=== PATIENT | male | born 1990 | race American Indian/Alaskan Native ===

== ENCOUNTER 2021-04-01 05:00 | Emergency (ER) | payer SELFPAY ==
[2021-04-01] MEDS ORDERED: SODIUM CHLORIDE 0.9% 1000 ML 1,000 ML IV ONE ×2 (05:38→07:27)
[2021-04-01 05:54] LABS: Basophils % (Auto) 0.3 % (0.0-1.8); Eosinophils # (Auto) 0.1 K/mm3 (0.0-0.4); Eosinophils % (Auto) 1.1 % (0.0-4.3); Hematocrit 42.1 % (35.5-45.6); Hemoglobin 14.2 gm/dl (11.8-15.2); Lymphocytes # (Auto) 1.8 K/mm3 (1.2-5.4); Lymphocytes % (Auto) 13.5 % (13.4-35.0); Mean Corpuscular HGB Conc 34 % (32-34); Mean Corpuscular Volume 89 fl (84-94); Monocytes # (Auto) 1.3 K/mm3 (0.0-0.8); Monocytes % (Auto) 9.8 % (0.0-7.3); Platelet Count 232 K/mm3 (140-440); Red Blood Count 4.72 M/mm3 (3.65-5.03); Red Cell Distribution Width 13.5 % (13.2-15.2)
[2021-04-01 06:23] LABS: BUN/Creatinine Ratio 10; Blood Urea Nitrogen 12 mg/dL (9-20); Calcium 9.1 mg/dL (8.4-10.2); Hemolysis Index 10
--- NOTE | 2021-04-01 06:39 | Emergency Department Report ---
HPI - General Chief Complaint: Syncope Time Seen by Provider: 04/01/21 06:06 - HPI HPI: This is a 27-year-old -[place] male who presents to the emergency department via EMS from work after the patient had a syncopal episode followed by a headache with nausea and vomiting. At the time of my examination the patient is awake and alert and oriented. 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 He sat down on a crate and was seen passing out for a few minutes. When the patient woke up he had a generalized headache with multiple episodes of nausea vomiting. Currently the patient still has a headache, 7 out of 10 in intensity, but the nausea/vomiting has resolved. He did not take anything or receive anything for his symptoms prior to presentation. The patient has a history of a previous brain aneurysm that has since "clotted off" and he had one episode of seizures. He is not currently on seizure medication since 2014. He denies any vision change, slurred speech, numbness or paresthesias, focal or lateralizing weakness or deficits. No recent travel or sick contacts at home. He does not have a primary care physician or neurologist. ED Past Medical Hx - Past Medical History Previous Medical History?: Yes Hx Seizures: Yes Additional medical history: Brain Bleed - Surgical History Past Surgical History?: No - Social History Smoking Status: Never Smoker Substance Use Type: Other ED Review of Systems ROS: Stated complaint: SYNCOPE;VOMITING Other details as noted in HPI Comment: All other systems reviewed and negative Constitutional: denies: chills, fever Eyes: denies: eye pain, vision change ENT: denies: ear pain, throat pain Respiratory: denies: cough, shortness of breath Cardiovascular: syncope. denies: chest pain, palpitations Gastrointestinal: nausea, vomiting. denies: abdominal pain Genitourinary: denies: dysuria, discharge Musculoskeletal: denies: back pain, arthralgia Skin: denies: rash, lesions Neurological: headache. denies: numbness, paresthesias Physical Exam - Physical Exam Vital Signs: Vital Signs 04/01/21 05:05 Temperature 97.5 F L Pulse Rate 66 Respiratory 18 Rate Blood Pressure 96/62 [Right] O2 Sat by Pulse 96 Oximetry Physical Exam: GENERAL: The patient is well-developed well-nourished. HENT: Normocephalic. Atraumatic. Patient has moist mucous membranes. EYES: Extraocular motions are intact. Pupils equal reactive to light bilaterally. No nystagmus. NECK: Supple. Trachea is midline. CHEST/LUNGS: Clear to auscultation. There is no respiratory distress noted. HEART/CARDIOVASCULAR: Regular. There is no tachycardia. There is no murmur. ABDOMEN: Abdomen is soft, nontender. Patient has normal bowel sounds. SKIN: Skin is warm and dry. NEURO: The patient is awake, alert, and oriented. The patient is cooperative. The patient has no focal neurologic deficits. Normal speech. Cranial nerves II through XII grossly intact. No pronator drift or dysmetria. No facial asymmetry. MUSCULOSKELETAL: There is no tenderness or deformity. There is no limitation range of motion. ED Course Vital Signs 04/01/21 05:05 Temperature 97.5 F L Pulse Rate 66 Respiratory 18 Rate Blood Pressure 96/62 [Right] O2 Sat by Pulse 96 Oximetry ED Medical Decision Making - Lab Data Result diagrams: 04/01/21 05:41 04/01/21 05:41 Lab Results 04/01/21 04/01/21 04/01/21 Range/Units 05:41 05:41 08:39 WBC 13.3 H (4.5-11.0) K/mm3 RBC 4.72 (3.65-5.03) M/mm3 Hgb 14.2 (11.8-15.2) gm/dl Hct 42.1 (35.5-45.6) % MCV 89 (84-94) fl MCH 30 (28-32) pg MCHC 34 (32-34) % RDW 13.5 (13.2-15.2) % Plt Count 232 (140-440) K/mm3 Lymph % (Auto) 13.5 (13.4-35.0) % Davis % (Auto) 9.8 H (0.0-7.3) % Eos % (Auto) 1.1 (0.0-4.3) % Baso % (Auto) 0.3 (0.0-1.8) % Lymph # (Auto) 1.8 (1.2-5.4) K/mm3 Davis # (Auto) 1.3 H (0.0-0.8) K/mm3 Eos # (Auto) 0.1 (0.0-0.4) K/mm3 Baso # (Auto) 0.0 (0.0-0.1) K/mm3 Seg Neutrophils % 75.3 H (40.0-70.0) % Seg Neutrophils # 10.0 H (1.8-7.7) K/mm3 Sodium 140 (137-145) mmol/L Potassium 4.4 (3.6-5.0) mmol/L Chloride 102.4 (98-107) mmol/L Carbon Dioxide 24 (22-30) mmol/L Anion Gap 18 mmol/L BUN 12 (9-20) mg/dL Creatinine 1.2 (0.8-1.3) mg/dL Estimated GFR > 60 ml/min BUN/Creatinine Ratio 10 % Glucose 53 L (75-100) mg/dL POC Glucose 91 (70-105) mg/dL Calcium 9.1 (8.4-10.2) mg/dL - EKG Data -: EKG Interpreted by Me EKG shows normal: sinus rhythm, axis, intervals, QRS complexes, ST-T waves Rate: normal - EKG Data When compared to previous EKG there are: previous EKG unavailable Interpretation: normal EKG - Medical Decision Making This patient presented to the emergency department after he had a syncopal episode while at work. Since being in the emergency department and since my initial examination the patient has been awake, alert, oriented. He does not appear in any respiratory or acute distress. On examination there is no focal, motor or sensory deficits and his cranial nerves are intact. The patient's labs have been mostly unremarkable including CBC and metabolic panel, except for some mild hyperglycemia with a blood sugar of about 60. He was given some juice and something to eat and upon recheck his Accu-Chek was up to about 90. EKG did not have any morphology consistent with ST elevation myocardial infarction or any dysrhythmia. His vital signs have been reassuring throughout his ED course including being afebrile. He has been reevaluated multiple times over more than 3 hours and there has been no further syncopal episodes, any neurological deficits, seizure-like activity, and the patient appears safe for discharge home at this time. He has been seen ambulatory in the emergency department and both appears and feels stable. He has been instructed to follow- up with primary care and return to the closest emergency department with any worsening of his symptoms or with any acute distress. Critical Care Time: No Critical care attestation.: If time is entered above; I have spent that time in minutes in the direct care of this critically ill patient, excluding procedure time. ED Disposition Clinical Impression: Syncope Qualifiers: Syncope type: unspecified Qualified Code(s): R55 - Syncope and collapse Headache Qualifiers: Headache type: unspecified Headache chronicity pattern: unspecified pattern Intractability: not intractable Qualified Code(s): R51.9 - Headache, unspecified Disposition: DC- TO HOME OR SELFCARE Is pt being admited?: No Condition: Stable Instructions: General Headache Without Cause, Syncope, Syncope (ED) Additional Instructions: Please follow-up with a primary care physician in the next few days. I am giving you a referral for a local primary care physician and a primary care clinic. Return to the emergency department with any worsening of your symptoms, new or concerning symptoms not addressed during this current emergency department visit, or with any acute distress. Referrals: BAYRON HARDING MD [Primary Care Provider] - 3-5 Days SUSAN AMADOR MD [Staff Physician] - 3-5 Days [facility] [Provider Group] - 3-5 Days Forms: Work/School Release Form(ED) Time of Disposition: 08:58
--- NOTE | 2021-04-01 07:24 | Cat Scan Report ---
CT HEAD WITHOUT CONTRAST INDICATION: Syncope, Headache, Hx of Aneurysm in 2015 TECHNIQUE: All CT scans at this location are performed using CT dose reduction for ALARA by means of automated exposure control. COMPARISON: None available. FINDINGS: BRAIN: No hemorrhage or mass effect are seen. No evidence of acute infarction is noted. ORBITS: Normal as visualized. SOFT TISSUES OF HEAD: Normal. CALVARIUM: Normal. VISUALIZED PARANASAL SINUSES AND MASTOID AIR CELLS: Clear. ADDITIONAL FINDINGS: None. IMPRESSION: No acute intracranial abnormality. Signer Name: Kingston Isaacs MD Signed: 04/01/2021 7:19 AM Workstation Name: [id number]
[2021-04-01] MEDS ORDERED: MORPHINE 4 MG/1 ML INJ IV ONE (07:27)
[2021-04-01 09:51] VITALS: BP 113/64
--- NOTE | 2021-04-02 10:02 | Electrocardiograph Report ---
[facility] Test Date: 2021-04-01 Test Time: 06:43:01 Pat Name: SAM KANG Department: Room: Gender: M [employer] Driver: [id number] : [id number] Requested By: WILMA KAMARA Order Number: [id number] Reading MD: Hanane Malik Measurements Intervals [place] Rate: 77 P: 87 VT: 173 QRS: 91 QRSD: 87 T: 63 QT: 369 QTc: 418 Interpretive Statements Sinus rhythm Early repolarization ST changes No previous ECG available for comparison Electronically Signed On 04-02-2021 10:02:38 EDT by Hanane Malik
== END 2021-04-01 09:05 | disposition home or self-care (01) ==
LOC: ED 05:00
DX: R55 Syncope and collapse (principal); R51.9 Headache, unspecified; R11.2 Nausea with vomiting, unspecified; Z86.69 Personal history of other diseases of the nervous system and sense organs; Z79.899 Other long term (current) drug therapy
CPT/HCPCS: 36415; 70450; 80048; 82962; 85025; 93005; 96361; 96374; 99284; J2270; J7030